=== PATIENT | male | born 1995 | race Caucasian/White ===

== ENCOUNTER 2018-09-01 10:54 | Emergency (ER) | payer SELFPAY ==
[2018-09-01 11:23] VITALS: BP 139/56
[2018-09-01] MEDS ORDERED: Ibuprofen TAB* 600 MG PO ONE (12:01)
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
== END 2018-09-01 12:46 | disposition home or self-care (01) ==
LOC: UCCORT 10:54
DX: S00.31XA Abrasion of nose, initial encounter (principal); S20.219A Contusion of unspecified front wall of thorax, initial encounter; V43.52XA Car driver injured in collision with other type car in traffic accident, initial encounter; W22.11XA Striking against or struck by driver side automobile airbag, initial encounter; Y92.9 Unspecified place or not applicable
CPT/HCPCS: 71046; 71120; 99202; A9270-GY; G0463